=== PATIENT | female | born 1960 | race Caucasian/White ===

== ENCOUNTER → 2017-02-10 | Outpatient (CLI) | payer BC ==
--- NOTE | 2017-02-10 14:57 | NM ---
EXAMINATION TYPE: NM bone SPECT, NM bone scan whole body DATE OF EXAM: 02/10/2017 2:14 PM COMPARISON: NONE HISTORY: Low Back pain TECHNIQUE: After the intravenous administration of 26.0 mCi Tc 99m MDP. Images acquired 3 hours pos t injection. SPECT views of the lumbar spine are submitted. Soft tissue uptake is normal. Mild decreased uptake within the feet, wrists, knees, shoulders. No abn ormal uptake seen within the lumbar spine. SPECT images are normal. IMPRESSION: Mild degenerative changes.
== END | disposition home or self-care (01) ==
LOC: RADNMMAIN 10:21
PROVIDERS: ATTEND Orthopaedic Surgery Orthopaedic Surgery of the Spine
DX: M51.16 Intervertebral disc disorders with radiculopathy, lumbar region (principal); M47.27 Other spondylosis with radiculopathy, lumbosacral region
CPT/HCPCS: 78306; 78320; A9503

== ENCOUNTER → 2018-07-27 | Outpatient (CLI) | payer BC ==
--- NOTE | 2018-07-27 08:35 | CT ---
EXAMINATION TYPE: CT lumbar spine wo con DATE OF EXAM: 07/27/2018 COMPARISON: Bone scan 02/10/2017 HISTORY: Low back pain CT DLP: 461.7 mGycm Automated exposure control for dose reduction was used. An unenhanced CT of the lumbar spine was performed. Bone and soft tissue window settings are submitt ed as well as coronal and sagittal reconstructions. FINDINGS: Intracardiac leads are present. Lumbar vertebral bodies show preserved height and alignment. Bone min eralization maintained. Mild spondylosis is present. Disc spaces relatively maintained. L1-L2: Normal disc space height. No disc herniation protrusion or central stenosis. No facet joint arthropathy. No evidence for foraminal encroachment. No evident spondylolysis. L2-L3: Normal disc space height. No disc herniation protrusion or central stenosis. No facet joint arthropathy. No evidence for foraminal encroachment. L3-L4: Normal disc space height. No disc herniation protrusion or central stenosis. No facet joint arthropathy. No evidence for foraminal encroachment. L4-L5: There is a broad-based posterior disc bulge causing anterior mass effect on the thecal sac. Fa cet arthropathy with hypertrophy ligamentum flavum results in some mass effect posterior laterally on the thecal sac. Mild central stenosis is present, circumferential extension of disc bulge encroaches somewhat on the foramina bilaterally. L5-S1: Posterior broad-based disc bulge may contact the anterior thecal sac, proximal S1 nerve roots. Circumferential extension encroaches somewhat towards the foramina. There is some mild facet arthrop athy. Circumaortic left renal vein noted incidentally. IMPRESSION: No paraspinal masses are identified. Lumbar segments are intact. Degenerative disc disease and facet arthropathy. Additional findings above.
== END | disposition home or self-care (01) ==
LOC: RADCTMAIN 07:39
PROVIDERS: ATTEND Physical Medicine & Rehabilitation
DX: M48.061 Spinal stenosis, lumbar region without neurogenic claudication (principal); M51.17 Intervertebral disc disorders with radiculopathy, lumbosacral region; M47.26 Other spondylosis with radiculopathy, lumbar region; M46.97 Unspecified inflammatory spondylopathy, lumbosacral region; M24.28 Disorder of ligament, vertebrae
CPT/HCPCS: 72131